=== PATIENT | male | born 1985 | race American Indian/Alaskan Native ===

== ENCOUNTER 2017-02-15 23:14 | Emergency (ER) | payer MEDICAID, OTHER ==
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
[2017-02-16 04:57] VITALS: BP 132/84; PULSE 65; RESP 18; TEMP 97.3
[2017-02-21 13:50] VITALS: O2SAT 100
== END 2017-02-16 04:57 | disposition home or self-care (01) ==
LOC: C.ER 23:14
DX: M54.5 Low back pain (principal); M54.2 Cervicalgia